=== PATIENT | male | born 1975 | race Caucasian/White ===

== ENCOUNTER 2022-05-04 14:01 | Outpatient (CLI) | payer BC ==
--- NOTE | 2022-05-04 19:18 | XRAY Report ---
PROCEDURE: Lumbar Spine 2 View INDICATIONS: LOW BACK PX TECHNIQUE: 2 views of the lumbar spine were acquired. COMPARISON: None. FINDINGS: Bones: . Rudimentary rib arcs are barely seen at T12. There are 5 true [id number] vertebrae. T here is normal bony alignment. No vertebral body compression fractures. Mild degenerative posterior endplate spurring at L4-5. Mild facet arthropathy and sclerosis L4-5. No suspicious bony lesions. Soft tissues: Overlying bowel gas pattern is normal. No suspicious soft tissue calcifications. IMPRESSION: 1. Mild posterior endplate spurring and facet arthropathy L4-5. Reviewed by: Nurys Estrada MD on 05/04/2022 6:17 PM [place] Approved by: Nurys Estrada MD on 05/04/2022 6:17 PM [facility] Station ID: [id number]
== END 2022-05-04 14:02 | disposition home or self-care (01) ==
LOC: DI 14:01
PROVIDERS: ATTEND Student in an Organized Health Care Education/Training Program
DX: M47.816 Spondylosis without myelopathy or radiculopathy, lumbar region (principal)

== ENCOUNTER 2022-06-16 17:45 | Outpatient (CLI) | payer BC ==
[2022-06-16 20:41] LABS: BASOPHILS # (AUTO) 0.1 10^3/uL (0.0-0.1); BASOPHILS % (AUTO) 0.6 %; EOSINOPHILS # (AUTO) 0.5 10^3/uL (0.0-0.7); EOSINOPHILS % (AUTO) 5.5 %; HCT - HEMATOCRIT 50.1 % (42.0-52.0); HGB - HEMOGLOBIN 16.9 g/dL (14.0-18.0); LYMPHOCYTES # (AUTO) 2.1 10^3/uL (1.5-3.5); LYMPHOCYTES % (AUTO) 26.4 %; MEAN CORPUSCULAR HGB CONC 33.7 g/dL (32.0-36.0); MONOCYTES # (AUTO) 0.6 10^3/uL (0.0-1.0); MONOCYTES % (AUTO) 6.8 %; NEUTROPHILS # (AUTO) 4.9 10^3/uL (1.5-6.6); NEUTROPHILS % (AUTO) 60.5 %; PLT - PLATELET COUNT 292 10^3/uL (130-450); RED BLOOD COUNT 5.63 10^6/uL (4.70-6.10); RED CELL DISTRIBUTION WIDTH 12.7 % (12.0-15.0); WHITE BLOOD COUNT 8.1 x10^3/uL (4.8-10.8)
[2022-06-16 21:02] LABS: ALBUMIN 4.9 g/dL (3.2-5.5); ALBUMIN/GLOBULIN RATIO 1.5 (1.0-2.2); ALKALINE PHOSPHATASE 44 IU/L (42-121); ALT ALANINE AMINOTRANSFERASE 27 IU/L (10-60); AST ASPARTATE AMINOTRANSFERASE 22 IU/L (10-42); BILIRUBIN,TOTAL 0.7 mg/dL (0.2-1.0); BUN - BLOOD UREA NITROGEN 7 mg/dL (6-20); CALCIUM 9.9 mg/dL (8.5-10.3); CARBON DIOXIDE - CO2 26 mmol/L (21-32); CHLORIDE 101 mmol/L (101-111); CHOL/HDL RATIO 4.8 (<5.0); CHOLESTEROL 246 mg/dL; CREATININE 0.7 mg/dL (0.6-1.2); GFR - MDRD 122 (>89); GLUCOSE 101 mg/dL (70-100); HDL CHOLESTEROL 51 mg/dL; LDL CHOLESTEROL,CALCULATED 177 mg/dL; LDL/HDL RATIO 3.5 (<3.6); POTASSIUM 3.6 mmol/L (3.5-5.0); SODIUM 137 mmol/L (135-145); TOTAL PROTEIN 8.2 g/dL (6.7-8.2); TRIGLYCERIDES 90 mg/dL; VLDL CHOLESTEROL 18 mg/dL
[2022-06-16 21:14] LABS: THYROID STIMULATING HORMONE 1.31 uIU/mL (0.34-5.60)
== END 2022-06-16 18:00 | disposition home or self-care (01) ==
LOC: LAB.N 17:45
PROVIDERS: ATTEND Family Medicine
DX: I10 Essential (primary) hypertension (principal); K59.00 Constipation, unspecified
CPT/HCPCS: 36415; 80053; 80061; 83721; 84153; 84443; 85025

== ENCOUNTER 2022-07-15 12:07 | Day surgery (SDC) | payer BC ==
[2022-07-15] MEDS ORDERED: LACTATED RINGERS 1,000 ML IV ONE ×2 (12:33→14:34)
--- NOTE | 2022-07-15 13:25 | ANESTHESIA ---
Pre-Anesthesia VS, & Labs - Diagnosis change in bowel habits - Procedure colonoscopy Vital Signs: Temp Pulse Resp BP Pulse Ox O2 Flow Rate 36.5 C 73 16 147/88 H 96 0 07/15/22 12:34 07/15/22 12:34 07/15/22 12:34 07/15/22 12:34 07/15/22 12:34 07/15/22 12:34 Height: 5 ft 11 in Weight (kg): 72.3 kg Body Mass Index: 22.2 BMI Classification: Normal - NPO >8 hours Home Medications and Allergies Home Medications: Ambulatory Orders No Known Home Medications 07/14/22 No Known Home Medications 07/14/22 Allergies/Adverse Reactions: Allergies Allergy/AdvReac Type Severity Reaction Status Date / Time No Known Drug Allergies Allergy Verified 07/14/22 12:35 Anes History & Medical History - Anesthetic History Anesthesia Complications: reports: No previous complications - Medical History Cardiovascular: reports: Arrhythmia Pulmonary: reports: Shortness of breath Gastrointestinal: reports: Chronic constipation, Other Urinary: reports: None Musculoskeletal: reports: Chronic back pain, Other Endocrine/Autoimmune: reports: None Skin: reports: Eczema - Surgical History General: reports: Appendectomy Exam General: Alert, Oriented x3, Cooperative Dental: WNL Mouth Opening: Greater than 4 Fingerbreadths Neck Mobility: Normal Mallampati classification: II Thyromental Distance: greater than 6 cm Respiratory: Lungs clear Cardiovascular: Regular rate Plan Anesthesia Type: Total IV Consent for Procedure(s) Verified and Reviewed: Yes Code Status: Attempt Resuscitation ASA classification: 2-Mild systemic disease Is this case an emergency?: No
[2022-07-15] MEDS ORDERED: PROPOFOL 500 MG/50 ML 500 MG/50 ML VIAL ONE (13:38)
--- NOTE | 2022-07-15 14:40 | ANESTHESIA POST OP EVALUATION ---
Anesthesia Post Eval - Post Anesthesia Eval Vitals: Last Vital Signs Temp 36.0 C L 07/15/22 14:38 Pulse 82 07/15/22 14:38 Resp 20 07/15/22 14:38 BP 120/90 H 07/15/22 14:38 Pulse Ox 98 07/15/22 14:38 O2 Flow Rate 0 07/15/22 12:34 CV Function Including HR & BP: Stable Pain Control: Satisfactory Nausea & Vomiting: Negative Mental Status: Baseline Respiratory Status: Airway Patent Hydration Status: Satisfactory Anesthesia Complications: None
[2022-07-15 15:24] VITALS: BP 143/90
== END 2022-07-15 12:08 | disposition home or self-care (01) ==
LOC: SDS 12:07
PROVIDERS: ATTEND Surgery
PROC: 0DBG8ZX Excision of Left Large Intestine, Via Natural or Artificial Opening Endoscopic, Diagnostic (ICD-10-PCS; principal; 2022-07-15 13:15)
DX: K59.00 Constipation, unspecified (principal); R10.32 Left lower quadrant pain; K57.30 Diverticulosis of large intestine without perforation or abscess without bleeding; K64.1 Second degree hemorrhoids
CPT/HCPCS: 45380; J7120

== ENCOUNTER 2022-09-19 13:24 | Outpatient (CLI) | payer BC ==
[2022-09-19] MEDS ORDERED: ALBUTEROL 1 PUFF INH STA (16:04)
== END 2022-09-19 13:25 | disposition home or self-care (01) ==
LOC: RT 13:24
PROVIDERS: ATTEND Physician Assistant
DX: R06.02 Shortness of breath (principal); Z87.891 Personal history of nicotine dependence
CPT/HCPCS: 94060; 94729